=== PATIENT | male | born 2000 | race Caucasian/White ===

== ENCOUNTER 2018-11-26 17:04 | Emergency (ER) | payer OTHER ==
[2018-11-26] MEDS ORDERED: Tetan/Diph/Pertus SYR(Tdap)* 0.5 ML SYR(BOOSTRIX) use SYR IM ONE ×2 (18:10→18:55)
--- NOTE | 2018-11-26 19:09 | UC ---
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 SCRATCHED HIS LEFT INDEX FINGER ON A SHARP PIECE OF SAID CHAIN-LINK FENCE. UNKNOWN DATE OF LAST TETANUS. - History of Current Complaint Chief Complaint: UCLaceration Time Seen by Provider: 11/26/18 18:39 Stated Complaint: FINGER LAC Hx Obtained From: Patient Onset/Duration: Sudden Onset, Lasting Hours, Still Present Timing: Constant Onset Severity: Mild Current Severity: Mild Pain Intensity: 3 Pain Scale Used: 0-10 Numeric Location: Discrete - LEFT DISTAL INDEX FINGER Aggravating Factor(s): Nothing Alleviating Factor(s): Nothing Associated Signs & Symptoms: Positive: Negative - Allergy/Home Medications Allergies/Adverse Reactions: Allergies Allergy/AdvReac Type Severity Reaction Status Date / Time No Known Allergies Allergy Verified 11/26/18 17:17 PMH/Surg Hx/FS Hx/Imm Hx Previously Healthy: Yes - Surgical History Surgical History: None - Family History Known Family History: Positive: Non-Contributory - Social History Alcohol Use: None Substance Use Type: None Smoking Status (MU): Never Smoked Tobacco - Immunization History Vaccination Up to Date: Yes Review of Systems All Other Systems Reviewed And Are Negative: Yes Skin: Positive: Other - ABRASION LEFT 2ND FINGER Respiratory: Positive: Negative Cardiovascular: Positive: Negative Gastrointestinal: Positive: Negative Physical Exam Triage Information Reviewed: Yes Appearance: Well-Appearing, No Pain Distress, Well-Nourished Vital Signs: Initial Vital Signs Temp 99.0 F 11/26/18 17:14 Pulse 70 11/26/18 17:14 Resp 18 11/26/18 17:14 BP 117/72 11/26/18 17:14 Pulse Ox 100 11/26/18 17:14 Vital Signs Reviewed: Yes Eyes: Positive: Conjunctiva Clear ENT: Positive: Hearing grossly normal Neck: Positive: Supple Respiratory: Positive: No respiratory distress, No accessory muscle use Cardiovascular: Positive: Pulses Normal Abdomen Description: Positive: Soft Musculoskeletal: Positive: No Edema Neurological: Positive: Alert Psychological: Positive: Age Appropriate Behavior Skin: Positive: Other - 6MM LINEAR ABRASION DISTAL LEFT INDEX FINGER Course/Dx - Course Course Of Treatment: SUPERFICIAL ABRASION TO DISTAL LEFT INDEX FINGER. STERI-STRIP APPLIED. TDAP BOOSTED. FOLLOW-UP IF NEEDED. - Diagnoses Provider Diagnosis: Abrasion of left index finger Discharge - Sign-Out/Discharge Documenting (check all that apply): Patient Departure All imaging exams completed and their final reports reviewed: No Studies - Discharge Plan Condition: Stable Disposition: HOME Patient Education Materials: Abrasion (ED) Referrals: Carisa Blanco MD [Primary Care Provider] - If Needed Additional Instructions: SEEK FOLLOW-UP IF YOU DEVELOP SPREADING REDNESS OF THE SKIN, PURULENT DRAINAGE, FEVER, INCREASED PAIN OR ANY OTHER CONCERNING SYMPTOMS. THE STERISTRIPS WILL FALL OFF ON THEIR OWN IN THE NEXT 1-2 WEEKS. DO NOT PUT ANY OINTMENT ON TOP OF THEM. DO NOT SUBMERGE IN WATER FOR PROLONGED PERIOD OF TIME. OKAY FOR BRIEF SHOWER AFTER 24 HOURS AND THEN BE SURE TO ALLOW TO DRY COMPLETELY. TETANUS IMMUNIZATION GIVEN (TDAP): You have been given an immunization against tetanus. Please record this in your records. In general, a booster is needed only once every 10 years. The tetanus shot protects against tetanus or "lockjaw," which is a complication of certain wound infections (the tetanus shot cannot protect against the actual infection). The immunization site may become warm and red due to local reaction. If this occurs, apply warm compresses and take aspirin or ibuprofen to reduce inflammation and discomfort. Return for evaluation if the reaction becomes severe. - Billing Disposition and Condition Condition: STABLE Disposition: Home
[2018-11-26] MEDS ORDERED: Ondansetron ODT TAB* 4 MG PO ONE (19:32)
[2018-11-26 20:07] VITALS: BP 142/92
[2018-11-26 20:56] LABS: Influenza A Molecular NEGATIVE (Negative); Influenza B Molecular NEGATIVE (Negative)
== END 2018-11-26 21:00 | disposition home or self-care (01) ==
LOC: UCEAST 17:04
DX: S61.211A Laceration without foreign body of left index finger without damage to nail, initial encounter (principal); S60.411A Abrasion of left index finger, initial encounter; W26.8XXA Contact with other sharp object(s), not elsewhere classified, initial encounter; Y92.89 Other specified places as the place of occurrence of the external cause; Y99.0 Civilian activity done for income or pay
CPT/HCPCS: 90471; 90715; 99202; A9270-GY; G0463